=== PATIENT | female | born 1955 | race Caucasian/White ===

== ENCOUNTER → 2016-04-26 | Outpatient (CLI) | payer OTHER | LOC: BMCIMAGING 10:22 | PROVIDERS: ATTEND Family Medicine | DX: S92.514A Nondisplaced fracture of proximal phalanx of right lesser toe(s), initial encounter for closed fracture (principal); M20.11 Hallux valgus (acquired), right foot; M19.071 Primary osteoarthritis, right ankle and foot ==

== ENCOUNTER → 2017-02-06 | Outpatient (CLI) | payer OTHER | LOC: FIMAGING 09:58 | PROVIDERS: ATTEND Internal Medicine | DX: Z12.31 Encounter for screening mammogram for malignant neoplasm of breast (principal) | CPT/HCPCS: G0202 ==

== ENCOUNTER 2017-12-07 11:07 | Day surgery (SDC) | payer OTHER ==
[2017-12-07] MEDS ORDERED: LR 1,000 ML IV ONE (11:38)
[2017-12-07] MEDS ORDERED: PROPOFOL/EMULSION 500 MG/50 ML BOTTLE IV ONE (12:14)
--- NOTE | 2017-12-07 12:20 | PDGENHP ---
History & Physical Chief Complaint: Personal history of colon adenoma History of Present Illness: Rectal adenoma s/p trans-anal excision with positive margins. Plan is for Colonoscopy with APC for treatment. Pertinent Past, Social, Family History: SH: No Tob. No ETOH. FH: negative for colon cancer Relevant Physical Exam: NAD. CTA B/L. RRR without m/r/g. GI soft. NABS. NT/ ND. Cardiorespiratory Assessment: ASA II. Colonoscopy with APC and biopsy or rectal trans-anal excision.
--- NOTE | 2017-12-07 12:21 | PDANEPAE ---
ANE History of Present Illness colonoscopy ANE Past Medical History - Cardiovascular History Hx Hypertension: No Hx Arrhythmias: No Hx Chest Pain: No Hx Coronary Artery / Peripheral Vascular Disease: No Hx CHF / Valvular Disease: No Hx Palpitations: No - Pulmonary History Hx COPD: No Hx Asthma/Reactive Airway Disease: No Hx Recent Upper Respiratory Infection: No Hx Oxygen in Use at Home: No Hx Sleep Apnea: No Sleep Apnea Screening Result - Last Documented: Negative Pulmonary History Comment: pneumonia at age 35 - Neurologic History Hx Cerebrovascular Accident: No Hx Seizures: No Hx Dementia: No - Endocrine History Hx Diabetes: No - Renal History Hx Renal Disorders: No - Liver History Hx Hepatic Disorders: No - Neurological & Psychiatric Hx Hx Neurological and Psychiatric Disorders: No Neurological / Psychiatric History Comment: AGUIRRE - Cancer History Hx Cancer: No - Congenital Disorder History Hx Congenital Disorders: No - GI History Hx Gastrointestinal Disorders: Yes Gastrointestinal History Comment: multiple colonoscopies, flex sigs. had laser removal of area in rectum of polyp cells - Other Health History Other Health History: none - Chronic Pain History Chronic Pain: No - Surgical History Prior Surgeries: colonoscopies. C-sections ANE Review of Systems Review of Systems: - Exercise capacity METS (RN): 5 METS ANE Patient History - Allergies Allergies/Adverse Reactions: No Known Allergies Allergy (Verified 11/10/17 11:52) - Home Medications Home Medications: Adult One Daily Multivit Tab 11/10/17 [Last Taken Unknown] Biotin 11/10/17 [Last Taken Unknown] Fiber Gummies 11/10/17 [Last Taken Unknown] - NPO status NPO Status: no food or drink >8 hours - Anes Hx Anes Hx: slow to awaken from anesthesia - Smoking Hx Smoking Status: Never smoked - Alcohol Use Alcohol Use: None - Family Anes Hx Family Anes Hx: none Family Hx Anesthesia Complications: none ANE Labs/Vital Signs - Vital Signs Height: 157.48 cm Weight: 52.163 kg ANE Physical Exam - Airway Neck exam: FROM Mallampati Score: Class 2 Mouth exam: normal dental/mouth exam - Pulmonary Pulmonary: no respiratory distress, clear to auscultation - Cardiovascular Cardiovascular: regular rate and rhythym, no murmur, rub, or gallop - ASA Status ASA Status: II ANE Anesthesia Plan Anesthesia Plan: GA w LMA Total IV Anesthesia: Yes
[2017-12-07] MEDS ORDERED: ACETAMINOPHEN 500 MG TAB PO PRN (12:45)
[2017-12-07] MEDS ORDERED: ONDANSETRON 4 MG/2 ML VIAL IVP PRN (12:45)
[2017-12-07] MEDS ORDERED: NALOXONE HCL 0.4 MG/ML INJ IVP PRN (12:45)
--- NOTE | 2017-12-07 12:46 | POSTANESTH ---
Post Anesthetic Evaluation Cardiovascular Status: Normal, Stable, Similar to Pre-Op Cond Respiratory Status: Normal, Stable, Similar to Pre-op Cond. Level of Consciousness/Mental Status: Can Participate in Eval, Alert and Oriented Pain Control: Adequate, Prn Tx Ordered Nausea/Vomiting Control: Adequate, Prn Tx Ordered Complications Possibly Related to Anesthesia: None Noted
--- NOTE | 2017-12-07 12:53 | GIREPORT ---
[facility] Surgical Services - Endoscopy Department Patient Name: Caryn Barriga Procedure Date: 12/07/2017 12:29 PM Patient Type: Outpatient Attending / ER Physician: Linus Russo MD Procedure: Colonoscopy Indications: High risk colon cancer surveillance: Personal history of colonic polyps Providers: Linus Russo MD Medicines: Propofol per Anesthesia Complications: No immediate complications. Description of Procedure: After obtaining informed consent, the scope was passed under direct vis ion. Throughout the procedure, the patient's blood pressure, pulse, and oxyg en saturations were monitored continuously. The Colonoscope was introduced through the anus and advanced to the rectum to examine a polypectomy si te. This was the intended extent. The colonoscopy was performed without difficulty. The patient tolerated the procedure well. The quality of th e bowel preparation was excellent. The rectum was photographed. Findings: The perianal and digital rectal examinations were normal. Pertinent negatives include normal sphincter tone and no palpable rectal lesions. A large post polypectomy scar was found in the rectum from prior trans- anal excision of a rectal adenoma. There was residual polyp tissue at the downstream margin, immediately adjacent to the anal verge. Biopsies wer e taken with a cold forceps for histology and complete removal of this ti ssue. Coagulation for tissue destruction using argon plasma at 0.3 liters/min dawn and 20 santiago was successful across the lower (downstream margin) of the polypectomy site. No residual tissue was visualized. Estimated Blood Loss: Estimated blood loss: none. Post Op Diagnosis: - Post-polypectomy scar in the rectum. Biopsied. Treated with argon carol sma coagulation (APC). Recommendation: - Await pathology results. - Perform a flexible sigmoidoscopy for evaluation of the polypectomy si te in 3 months to decide about further APC treatment or additional surgical resection. - A colonoscopy preparation will be arranged in case additional APC is needed. - If the pathology is negative for residual adenoma and the repeat flex ible sigmoidoscopy in 3 months is also normal then a colonoscopy in 2 years will be arranged. - Thank you for allowing me to be involved in the care of your patient. Attending Participation: I personally performed the entire procedure without the assistance of a fellow, resident or surg ical physical laboratory assistant. Linus Russo MD Linus Russo MD 12/07/2017 12:52:22 PM This report has been signed electronicallyDavid MD Rafaela Number of Addenda: 0 Note Initiated On: 12/07/2017 12:29 PM Total Procedure Duration Time 0 hours 13 minutes 12 seconds [email or web address]
[2017-12-07 14:10] VITALS: BP 106/69
[2017-12-07] MEDS ORDERED: DEXAMETHASONE 4 MG/ML VIAL ONE (16:21)
[2017-12-07] MEDS ORDERED: ONDANSETRON 4 MG/2 ML VIAL ONE (16:21)
== END 2017-12-07 14:15 | disposition home or self-care (01) ==
LOC: FSGY 11:07
PROVIDERS: ATTEND Internal Medicine Gastroenterology
PROC: 0DBP8ZX Excision of Rectum, Via Natural or Artificial Opening Endoscopic, Diagnostic (ICD-10-PCS; principal; 2017-12-07 12:30)
DX: Z86.010 Personal history of colon polyps (principal)
CPT/HCPCS: J1100; J2405; J2704

== ENCOUNTER → 2018-02-08 | Outpatient (CLI) | payer OTHER | LOC: FIMAGING 10:11 | PROVIDERS: ATTEND Internal Medicine | DX: Z12.31 Encounter for screening mammogram for malignant neoplasm of breast (principal) ==

== ENCOUNTER 2018-06-08 11:29 | Day surgery (SDC) | payer OTHER ==
[2018-06-08] MEDS ORDERED: LIDOCAINE 1% 2 ML INJ ID PRN (12:45)
[2018-06-08] MEDS ORDERED: LR 1,000 ML IV ONE (12:45)
[2018-06-08] MEDS ORDERED: NALOXONE HCL 0.4 MG/ML INJ IVP PRN (13:27)
[2018-06-08] MEDS ORDERED: LR 500 ML IV PRN (13:27)
[2018-06-08] MEDS ORDERED: ONDANSETRON 4 MG/2 ML VIAL IVP PRN (13:27)
[2018-06-08] MEDS ORDERED: fentaNYL 100 MCG/2 ML INJ IVP PRN (13:27)
--- NOTE | 2018-06-08 13:27 | PDANEPAE ---
ANE History of Present Illness here for sigmoidoscopy ANE Past Medical History - Cardiovascular History Hx Hypertension: No Hx Arrhythmias: No Hx Chest Pain: No Hx Coronary Artery / Peripheral Vascular Disease: No Hx CHF / Valvular Disease: No Hx Palpitations: No - Pulmonary History Hx COPD: No Hx Asthma/Reactive Airway Disease: No Hx Recent Upper Respiratory Infection: No Hx Oxygen in Use at Home: No Hx Sleep Apnea: No Sleep Apnea Screening Result - Last Documented: Negative Pulmonary History Comment: pneumonia at age 35 - Neurologic History Hx Cerebrovascular Accident: No Hx Seizures: No Hx Dementia: No Neurologic History Comment: CLUSTER HEADACHES - Endocrine History Hx Diabetes: No - Renal History Hx Renal Disorders: No - Liver History Hx Hepatic Disorders: No - Neurological & Psychiatric Hx Hx Neurological and Psychiatric Disorders: No Neurological / Psychiatric History Comment: AGUIRRE - Cancer History Hx Cancer: No - Congenital Disorder History Hx Congenital Disorders: No - GI History Hx Gastrointestinal Disorders: Yes Gastrointestinal History Comment: multiple colonoscopies, flex sigs. had laser removal of area in rectum of polyp cells - Other Health History Other Health History: none - Chronic Pain History Chronic Pain: No - Surgical History Prior Surgeries: colonoscopies W/LASER ABLATION. RECTAL SURGERY. C-sections ANE Review of Systems Review of systems is: negative Review of Systems: - Exercise capacity Exercise capacity: >=4 METS METS (RN): 5 METS ANE Patient History - Allergies Allergies/Adverse Reactions: No Known Allergies Allergy (Verified 11/10/17 11:52) - Home Medications Home medications: home medication list seen and reviewed Home Medications: Adult One Daily Multivit Tab 11/10/17 [Last Taken 06/01/18] Biotin 11/10/17 [Last Taken 06/01/18] Fiber Gummies 11/10/17 [Last Taken 06/01/18] Herbals/Supplements -Info Only 05/17/18 [Last Taken 06/01/18] SUMAtriptan 05/17/18 [Last Taken 05/18/18] - NPO status NPO Status: no food or drink >8 hours NPO Since - Liquids (Date): 06/08/18 NPO Since - Liquids (Time): 08:00 NPO Since - Solids (Date): 06/06/18 - Anes Hx Anes Hx: no prior problems - Smoking Hx Smoking Status: Never smoked - Family Anes Hx Family Hx Anesthesia Complications: none ANE Labs/Vital Signs - Vital Signs Vital Signs: reviewed preoperatively; see RN documention for details Blood Pressure: 113/67 Heart Rate: 64 Respiratory Rate: 14 O2 Sat (%): 98 Height: 157.48 cm Weight: 51.71 kg ANE Physical Exam - Airway Neck exam: FROM Mallampati Score: Class 1 Mouth exam: normal dental/mouth exam - Pulmonary Pulmonary: no respiratory distress - Cardiovascular Cardiovascular: regular rate and rhythym - ASA Status ASA Status: II ANE Anesthesia Plan Anesthesia Plan: GA with mask
--- NOTE | 2018-06-08 13:34 | PDGENHP ---
History & Physical Chief Complaint: Polyp history History of Present Illness: Surveillance of rectal polyp Pertinent Past, Social, Family History: Colon polyps. Transanal excision of rectal polyp. SH: no tob or ETOH Relevant Physical Exam: NAD. CTA B/L. RRR without m/r/g. GI soft. NABS. NT/ND Cardiorespiratory Assessment: ASA II. Flexible sigmoidoscopy with possible APC with MAC/IV sedation
[2018-06-08] MEDS ORDERED: PROPOFOL/EMULSION 500 MG/50 ML BOTTLE IV ONE (13:35)
[2018-06-08] MEDS ORDERED: PHENYLEPHRINE HCL 100 MCG/ML SYR ONE (13:49)
--- NOTE | 2018-06-08 13:53 | GIREPORT ---
[facility] Surgical Services - Endoscopy Department Patient Name: Caryn Barriga Procedure Date: 06/08/2018 1:26 PM Patient Type: Outpatient Attending MD/ ER Physician: Linus Russo MD Procedure: Flexible Sigmoidoscopy Indications: High risk colon cancer surveillance: Personal history of colonic polyps Providers: Linus Russo MD Medicines: Propofol per Anesthesia Complications: No immediate complications. Description of Procedure: After obtaining informed consent, the endoscope was passed under direct vision. Throughout the procedure, the patient's blood pressure, pulse, and oxygen saturations were monitored continuously. The Colonoscope was introduced through the anus and advanced to the sigmoid colon. The flex ible sigmoidoscopy was accomplished without difficulty. The patient tolerate d the procedure well. The quality of the bowel preparation was excellent. Findings: The digital rectal exam findings include non-thrombosed external hemorrhoids. Pertinent negatives include normal sphincter tone and no palpable rectal lesions. A large post polypectomy scar was found in the rectum. There was no prateek dence of the previous polyp. Biopsies were taken with a cold forceps for hist ology. Estimated Blood Loss: Estimated blood loss: none. Post Op Diagnosis: - Non-thrombosed external hemorrhoids found on digital rectal exam. - Post-polypectomy scar in the rectum. Biopsied. There is no evidence f or residual adenoma. Recommendation: - Await pathology results. - Perform a colonoscopy in 1 year. - Thank you for allowing me to be involved in the care of your patient. Attending Participation: I personally performed the entire procedure without the assistance of a fellow, resident or surg ical assistant farm operations manager. Linus Russo MD Linus Russo MD 06/08/2018 1:53:25 PM This report has been signed electronicallyDavid MD Rafaela Number of Addenda: 0 Note Initiated On: 06/08/2018 1:26 PM Total Procedure Duration Time 0 hours 5 minutes 58 seconds [email or web address]
--- NOTE | 2018-06-08 14:11 | POSTANESTH ---
Post Anesthetic Evaluation Cardiovascular Status: Normal, Stable Respiratory Status: Normal, Stable Level of Consciousness/Mental Status: Can Participate in Eval Pain Control: Adequate, Prn Tx Ordered Nausea/Vomiting Control: Adequate, Prn Tx Ordered Complications Possibly Related to Anesthesia: None Noted
[2018-06-08 15:28] VITALS: BP 114/56
== END 2018-06-08 15:42 | disposition home or self-care (01) ==
LOC: FSGY 11:29
PROVIDERS: ATTEND Internal Medicine Gastroenterology
PROC: 0DBP8ZX Excision of Rectum, Via Natural or Artificial Opening Endoscopic, Diagnostic (ICD-10-PCS; principal; 2018-06-08 13:00)
DX: D12.8 Benign neoplasm of rectum (principal); Z86.010 Personal history of colon polyps; K64.4 Residual hemorrhoidal skin tags
CPT/HCPCS: J2370; J2704